=== PATIENT | female | born 1950 | race Caucasian/White ===

== ENCOUNTER 2019-09-25 22:07 | Emergency (ER) | payer OTHER ==
[2019-09-25] MEDS ORDERED: Acetaminophen/HYDROcodone 325-5 MG Tab PO ONE ×2 (22:19→22:27)
[2019-09-25] MEDS ORDERED: Clindamycin HCl 150 MG Cap PO ONE (22:27)
--- NOTE | 2019-09-25 22:28 | EDM.PDOC ---
ED HPI GENERAL MEDICAL PROBLEM - General Chief Complaint: ENT Problem Stated Complaint: EAR AND TOOTH PAIN Time Seen by Provider: 09/25/19 22:18 Source of Information: Reports: Patient, RN Notes Reviewed History Limitations: Reports: No Limitations - History of Present Illness INITIAL COMMENTS - FREE TEXT/NARRATIVE: Patient is a 69-year-old female who presents to the ED for the evaluation of her left sided dental pain. Patient notes that she had 2 root canals performed by film crew member on Sunday, and was sent home with Lortabs, but states she did not fill them as she was using Tylenol that seem to help provide pain relief. Patient notes that tonight however she developed some pain into her left jaw, that radiates into her left ear and left neck, she denies any difficulty swallowing or any fever/chills, cough/shortness of breath, or any chest pain, nausea/vomiting/diarrhea. Patient did appreciate a mild amount of swelling as well. Left Tooth/Teeth Pain Score (Numeric/FACES): 9 - Related Data Allergies Allergy/AdvReac Type Severity Reaction Status Date / Time latex Allergy Rash Verified 09/25/19 22:15 nickel Allergy Rash Verified 09/25/19 22:15 Penicillins Allergy Rash Verified 09/25/19 22:15 Home Meds: Home Meds Clindamycin HCl 300 mg PO TID #21 capsule 09/25/19 [Rx] Past Medical History HEENT History: Reports: Other (See Below) Other HEENT History: wears glasses Cardiovascular History: Reports: High Cholesterol, Hypertension Gastrointestinal History: Reports: GERD Psychiatric History: Reports: Depression Endocrine/Metabolic History: Reports: Hypothyroidism - Past Surgical History HEENT Surgical History: Reports: Adenoidectomy, Tonsillectomy Female Surgical History: Reports: Tubal Ligation Social & Family History - Family History Family Medical History: Noncontributory - Tobacco Use Smoking Status *Q: Never Smoker - Caffeine Use Caffeine Use: Reports: Coffee - Recreational Drug Use Recreational Drug Use: No ED ROS ENT - Review of Systems Review Of Systems: Comprehensive ROS is negative, except as noted in HPI. ED EXAM, ENT - Physical Exam Exam: See Below Exam Limited By: No Limitations General Appearance: Alert, WD/WN, No Apparent Distress Mouth/Throat: Normal Inspection, Normal Gums, Normal Lips, Normal Oropharynx, Dental Pain (to left jaw). No: Trismus, Uvular Deviation Head: Atraumatic, Normocephalic Neck: Normal Inspection Respiratory/Chest: No Respiratory Distress, Lungs Clear, Normal Breath Sounds, No Accessory Muscle Use, Chest Non-Tender Cardiovascular: Normal Peripheral Pulses, Regular Rate, Rhythm, No Murmur Extremities: Normal Inspection, Normal Capillary Refill Neurological: Alert, Oriented, Normal Cognition, No Motor/Sensory Deficits Psychiatric: Normal Affect, Normal Mood Skin: Warm, Dry, Intact, Normal Color, No Rash Course - Vital Signs Last Recorded V/S: Last Vital Signs Temp 98.8 F 09/25/19 22:12 Pulse 96 09/25/19 22:12 Resp 18 09/25/19 22:12 BP 105/83 09/25/19 22:12 Pulse Ox 100 09/25/19 22:12 - Orders/Labs/Meds Meds: Medications Discontinued Medications Generic Name Dose Route Start Last Admin Trade Name Dim[place] PRN Reason Stop Dose Admin Hydrocodone Bitart/Acetaminophen 2 tab 09/25/19 22:19 [place] 325-5 Mg PO 09/25/19 22:20 ONETIME ONE Hydrocodone Bitart/Acetaminophen 2 tab 09/25/19 22:27 [place] 325-5 Mg PO 09/25/19 22:28 ONETIME ONE Clindamycin HCl 600 mg 09/25/19 22:27 [place] PO 09/25/19 22:28 ONETIME ONE - Re-Assessments/Exams Free Text/Narrative Re-Assessment/Exam: 09/25/19 22:34 Patient presents to the ED for her left-sided dental pain. I have ordered 2 tablets of [place] 5/325mg, and 60o mg oral clindamycin, patient was at home with a prescription for clindamycin, she will fill her Lortab prescription tomorrow. Departure - Departure Time of Disposition: 22:35 Disposition: Home, Self-Care 01 Condition: Good Clinical Impression: Pain, dental - Discharge Information *PRESCRIPTION DRUG MONITORING PROGRAM REVIEWED*: No *COPY OF PRESCRIPTION DRUG MONITORING REPORT IN PATIENT MUNIRA: No Prescriptions: Clindamycin HCl 300 mg PO TID #21 capsule Referrals: Letitia Avery MD [Primary Care Provider] - Forms: ED Department Discharge Additional Instructions: You have been evaluated in the ED for your dental pain. You have been provided with a script for Clindamycin. This was electronically sent to the Clinic pharmacy located in the [facility]. Please take this medication as directed. (1 tab 3 times daily for 7 days or until gone). This antibiotic can cause diarrhea, recommend that you start a probiotic while taking this medication. Please fill the Lortab prescription that your dental provider did give you upon discharge after the root canals for further pain relief. You may use hot pack/ ice packs to the affected area as tolerated in 15-20 minute intervals. Please return to the ED if your symptoms change or worsen. Sepsis Event Note (ED) - Evaluation Sepsis Screening Result: No Definite Risk - Focused Exam Vital Signs: Vital Signs Temp Pulse Resp BP Pulse Ox 09/25/19 22:12 98.8 F 96 18 105/83 100
== END 2019-09-25 22:48 | disposition home or self-care (01) ==
LOC: JD.ED 22:07
DX: K08.89 Other specified disorders of teeth and supporting structures (principal); R68.84 Jaw pain; I10 Essential (primary) hypertension; Z91.040 Latex allergy status; Z88.0 Allergy status to penicillin; Z91.048 Other nonmedicinal substance allergy status
CPT/HCPCS: 99282; A9270

== ENCOUNTER 2019-09-28 15:42 | Emergency (ER) | payer MEDICARE, OTHER ==
[2019-09-28] MEDS ORDERED: HYDROmorphone 0.5 MG/0.5 ML Syringe IVPUSH ONE (16:16)
[2019-09-28] MEDS ORDERED: cefTRIAXone 1 GM in Sodium Chloride 0.9% 100 ML IV ONE (16:16)
[2019-09-28] MEDS ORDERED: Ondansetron 4 MG/2 ML SDV IVPUSH ONE (16:16)
[2019-09-28] MEDS ORDERED: Sodium Chloride 0.9% 10 ML Syringe FLUSH PRN (16:16)
[2019-09-28] MEDS ORDERED: Ketorolac 30 MG/ML SDV IVPUSH ONE (16:16)
[2019-09-28] MEDS ORDERED: Sodium Chloride 0.9% 1,000 ML IV SCH (16:30)
--- NOTE | 2019-09-28 18:01 | EDM.PDOC ---
ED HPI GENERAL MEDICAL PROBLEM - General Chief Complaint: ENT Problem Stated Complaint: TOOTH/NECK/EAR PAIN Time Seen by Provider: 09/28/19 15:52 Source of Information: Reports: Patient History Limitations: Reports: No Limitations - History of Present Illness INITIAL COMMENTS - FREE TEXT/NARRATIVE: Patient is a 69-year-old female who presents to the emergency department with co mplaints of pain and swelling to her left lower jaw after having root canal was completed on Sunday of last week. She was seen in this emergency department 3 days ago for similar complaints. She was prescribed [place] and clindamycin which she has been taking since that time. She states that the pain has not improved and that she feels like the swelling may have gotten worse. She denies any naus ea, vomiting, fever, or chills. - Related Data Allergies Allergy/AdvReac Type Severity Reaction Status Date / Time latex Allergy Rash Verified 09/25/19 22:15 nickel Allergy Rash Verified 09/25/19 22:15 Penicillins Allergy Rash Verified 09/25/19 22:15 Home Meds: Home Meds Calcium Carb/Vitamin D3/Vit K1 [Calcium + D Soft Chewable Tab] 2 tab PO DAILY 09/25/19 [History] Citalopram [Citalopram HBr] 20 mg PO DAILY 09/25/19 [History] Clindamycin HCl 300 mg PO TID #21 capsule 09/25/19 [Rx] Folic Acid 2 mg PO DAILY 09/25/19 [History] Latanoprost/Pf [Latanoprost 0.005% Eye Drop] 1 drop EYELF BEDTIME 09/25/19 [History] Levothyroxine [Synthroid] 100 mcg PO DAILY 09/25/19 [History] Methotrexate 7 tab PO WEEKLY 09/25/19 [History] Multivitamin [Multivitamins] 1 cap PO DAILY 09/25/19 [History] Omeprazole 20 mg PO DAILY 09/25/19 [History] Sennosides [Senna] 8.6 mg PO DAILY PRN 09/25/19 [History] Zoledronic AC/Mannitol/0.9NACL [Zoledronic Acid 4 mg/100 ml] 5 mg IV ASDIRECTED 09/25/19 [History] amLODIPine [Norvasc] 5 mg PO DAILY 09/25/19 [History] atorvaSTATin [Lipitor] 10 mg PO DAILY 09/25/19 [History] Past Medical History HEENT History: Reports: Other (See Below) Other HEENT History: wears glasses Cardiovascular History: Reports: High Cholesterol, Hypertension Gastrointestinal History: Reports: GERD Psychiatric History: Reports: Depression Endocrine/Metabolic History: Reports: Hypothyroidism - Past Surgical History HEENT Surgical History: Reports: Adenoidectomy, Tonsillectomy Female Surgical History: Reports: Tubal Ligation Social & Family History - Family History Family Medical History: Noncontributory - Tobacco Use Smoking Status *Q: Never Smoker - Caffeine Use Caffeine Use: Reports: Coffee ED ROS ENT - Review of Systems Review Of Systems: Comprehensive ROS is negative, except as noted in HPI. ED EXAM, ENT - Physical Exam Exam: See Below Exam Limited By: No Limitations General Appearance: Alert, WD/WN, No Apparent Distress Mouth/Throat: Normal Inspection, Normal Gums, Normal Lips, Normal Oropharynx, Normal Teeth, Other (Visible swelling to the exterior left lower jaw. No redness or erythema to the gumline.) Respiratory/Chest: No Respiratory Distress, Lungs Clear, Normal Breath Sounds, No Accessory Muscle Use, Chest Non-Tender Cardiovascular: Normal Peripheral Pulses, Regular Rate, Rhythm, No Edema, No Gallop, No JVD, No Murmur, No Rub Neurological: Alert, Oriented, CN II-XII Intact, Normal Cognition, Normal Gait, Normal Reflexes, No Motor/Sensory Deficits Psychiatric: Normal Affect, Normal Mood Skin: Warm, Dry, Intact, Normal Color, No Rash Course - Vital Signs Last Recorded V/S: Last Vital Signs Temp 98.7 F 09/28/19 15:56 Pulse 99 09/28/19 15:56 Resp 16 09/28/19 15:56 BP 165/93 H 09/28/19 15:56 Pulse Ox 97 09/28/19 15:56 - Orders/Labs/Meds Orders: Active Orders 24 hr Category Date Time Status Peripheral IV Care [RC] . DIRECTED Care 09/28/19 16:16 Active Peripheral IV Insertion Adult [OM.PC] Stat Oth 09/28/19 16:16 Ordered Labs: Laboratory Tests 09/28/19 09/28/19 Range/Units 16:41 16:41 WBC 7.46 (3.98-10.04) K/mm3 RBC 3.54 L (3.98-5.22) M/mm3 Hgb 11.2 (11.2-15.7) gm/dl Hct 34.6 (34.1-44.9) % MCV 97.7 H (79.4-94.8) fl MCH 31.6 (25.6-32.2) pg MCHC 32.4 (32.2-35.5) g/dl RDW Std Deviation 56.7 H (36.4-46.3) fL Plt Count 202 (182-369) K/mm3 MPV 9.8 (9.4-12.3) fl Neut % (Auto) 77.3 H (34.0-71.1) % Lymph % (Auto) 5.6 L (19.3-51.7) % Bartholomew % (Auto) 15.8 H (4.7-12.5) % Eos % (Auto) 1.1 (0.7-5.8) Baso % (Auto) 0.1 (0.1-1.2) % Neut # (Auto) 5.76 (1.56-6.13) K/mm3 Lymph # (Auto) 0.42 L (1.18-3.74) K/mm3 Bartholomew # (Auto) 1.18 H (0.24-0.36) K/mm3 Eos # (Auto) 0.08 (0.04-0.36) K/mm3 Baso # (Auto) 0.01 (0.01-0.08) K/mm3 Manual Slide Review Abnormal smear Sodium 136 (136-145) mEq/L Potassium 3.8 (3.5-5.1) mEq/L Chloride 101 (98-107) mEq/L Carbon Dioxide 28 (21-32) mEq/L Anion Gap 10.8 (5-15) BUN 9 (7-18) mg/dL Creatinine 0.5 L (0.55-1.02) mg/dL Est Cr Clr Drug Dosing 92.86 mL/min Estimated GFR (MDRD) > 60 (>60) mL/min BUN/Creatinine Ratio 18.0 (14-18) Glucose 98 (83-115) mg/dL Calcium 9.5 (8.5-10.1) mg/dL Total Bilirubin 0.5 (0.2-1.0) mg/dL AST 34 (15-37) U/L ALT 35 (14-59) U/L Alkaline Phosphatase 85 (46-116) U/L C-Reactive Protein 5.0 H* (<1.0) mg/dL Total Protein 7.1 (6.4-8.2) g/dl Albumin 3.5 (3.4-5.0) g/dl Globulin 3.6 gm/dL Albumin/Globulin Ratio 1.0 (1-2) Meds: Medications Discontinued Medications Generic Name Dose Route Start Last Admin Trade Name Freq PRN Reason Stop Dose Admin Hydromorphone HCl 0.5 mg 09/28/19 16:16 09/28/19 16:39 Dilaudid IVPUSH 09/28/19 16:17 0.5 mg ONETIME ONE Administration Sodium Chloride 1,000 mls @ 150 mls/hr 09/28/19 16:30 09/28/19 16:38 Normal Saline IV 150 mls/hr ASDIRECTED [place] Administration Ceftriaxone Sodium 1 gm/ 100 mls @ 200 mls/hr 09/28/19 16:16 09/28/19 16:38 Sodium Chloride IV 09/28/19 16:45 200 mls/hr ONETIME ONE Administration Ketorolac Tromethamine 30 mg 09/28/19 16:16 09/28/19 16:38 Toradol IVPUSH 09/28/19 16:17 30 mg ONETIME ONE Administration Ondansetron HCl 4 mg 09/28/19 16:16 09/28/19 16:38 Zofran IVPUSH 09/28/19 16:17 4 mg ONETIME ONE Administration Sodium Chloride 10 ml 09/28/19 16:16 09/28/19 16:39 Saline Flush FLUSH 10 ml ASDIRECTED PRN Administration Keep Vein Open - Re-Assessments/Exams Free Text/Narrative Re-Assessment/Exam: Patient is a 69-year-old female who presents to the ER with ongoing pain and swelling to her left lower jaw after root canals were completed last Sunday. She states she forgot to call her dentist on Sunday. She was prescribed clindamycin called on to treat the symptoms. Been taking these since that time but does not feel that the symptoms are getting better. Discussed the case with Dr. Oconnell. He recommended that we give a dose of IV Rocephin now and then start doxycycline in addition to the clindamycin. I have also ordered a CBC, CMP, CRP. We will also give her a slow infusion of NS at 150 as well as Toradol and Dilaudid for pain. 09/28/19 1750 Hematology was grossly unremarkable with the exception of her CRP being slightly elevated at 5.0. She is feeling better after the medications given. We will discharge her home with a prescription for Percocet for the pain as well as doxycycline to be taken in addition to the clindamycin. I did emphasize the importance of her contacting her dentist tomorrow to arrange for follow-up. She is in agreement with this plan. Discharge instructions as documented. Departure - Departure Time of Disposition: 17:58 Disposition: Home, Self-Care 01 Condition: Good Clinical Impression: Pain, dental - Discharge Information *PRESCRIPTION DRUG MONITORING PROGRAM REVIEWED*: No *COPY OF PRESCRIPTION DRUG MONITORING REPORT IN PATIENT MUNIRA: No Instructions: Acute Pain, Adult Referrals: Letitia Avery MD [Primary Care Provider] - Forms: ED Department Discharge Additional Instructions: You were seen in the emergency department today for ongoing pain and swelling to your left lower jaw after root canal surgery. Blood work was done in the ER and found to be essentially normal with the exception of your inflammatory markers being slightly elevated. While in the ER you received IV Rocephin which is an antibiotic, Toradol and Dilaudid for pain, and Zofran for nausea. This did improve your pain. Recommend that you continue the clindamycin that was previously prescribed. You have also been provided a prescription for doxycycline which was also an antibiotic. Start taking this medication in addition to the clindamycin. I would also recommend that you start taking a daily probiotic to protect the good bacterial collin of your gut. Recommend that you continue to take ibuprofen routinely as this will help with the pain and in flammation. You have also been provided a prescription for Percocets for pain not relieved by ibuprofen. Take 1 tab every 4 hours as needed for pain. Do not drive or work for at least 12 hours after taking this medication as it can be sedating. It is very important that you contact your dentist first thing tomorrow morning to let them know about the situation. If you should experience any worsening symptoms, please not hesitate to return to the emergency department. Sepsis Event Note (ED) - Evaluation Sepsis Screening Result: No Definite Risk - Focused Exam Vital Signs: Vital Signs Temp Pulse Resp BP Pulse Ox 09/28/19 15:56 98.7 F 99 16 165/93 H 97 - My Orders Last 24 Hours: My Active Orders 09/28/19 16:16 Peripheral IV Care [RC] . DIRECTED Peripheral IV Insertion Adult [OM.PC] Stat - Assessment/Plan Last 24 Hours: My Active Orders 09/28/19 16:16 Peripheral IV Care [RC] . DIRECTED Peripheral IV Insertion Adult [OM.PC] Stat
== END 2019-09-28 18:10 | disposition home or self-care (01) ==
LOC: JD.ED 15:42
DX: K08.89 Other specified disorders of teeth and supporting structures (principal); E78.00 Pure hypercholesterolemia, unspecified; I10 Essential (primary) hypertension; K21.9 Gastro-esophageal reflux disease without esophagitis; E03.9 Hypothyroidism, unspecified; F32.9 Major depressive disorder, single episode, unspecified; Z91.040 Latex allergy status; Z91.09 Other allergy status, other than to drugs and biological substances; Z88.0 Allergy status to penicillin; Z79.899 Other long term (current) drug therapy
CPT/HCPCS: 36415; 80053; 85025; 86140; 96365; 96375; 99283; J0696; J1170; J1885; J2405; J7030; J7050

== ENCOUNTER 2019-10-02 10:38 | Emergency (ER) | payer MEDICARE, OTHER ==
--- NOTE | 2019-10-02 11:04 | EDM.PDOC ---
ED HPI GENERAL MEDICAL PROBLEM - General Chief Complaint: ENT Problem Stated Complaint: SWOLLEN (L) CHEEK Time Seen by Provider: 10/02/19 11:04 - History of Present Illness INITIAL COMMENTS - FREE TEXT/NARRATIVE: 69-year-old female seen room with continued left jaw swelling. About a week and a half ago the patient had a dental abscess drained. She has been seen here several times and started on clindamycin doxycycline and has already received 1 IV dose of Rocephin and the swelling is not getting any better she saw her hand candle dipper again earlier this week who drained it but she is not improving at all and seems to have continued drainage from the site. She continues to have swelling at the site and along the left lower jaw and she is not aware of any fevers or chills. Left Face/Facial Pain Score (Numeric/FACES): 5 - Related Data Allergies Allergy/AdvReac Type Severity Reaction Status Date / Time latex Allergy Rash Verified 10/02/19 10:51 nickel Allergy Rash Verified 10/02/19 10:51 Penicillins Allergy Rash Verified 10/02/19 10:51 Home Meds: Home Meds Calcium Carb/Vitamin D3/Vit K1 [Calcium + D Soft Chewable Tab] 2 tab PO DAILY 09/25/19 [History] Citalopram [Citalopram HBr] 20 mg PO DAILY 09/25/19 [History] Clindamycin HCl 300 mg PO TID #21 capsule 09/25/19 [Rx] Folic Acid 3 mg PO DAILY 09/25/19 [History] Latanoprost/Pf [Latanoprost 0.005% Eye Drop] 1 drop EYELF BEDTIME 09/25/19 [History] Levothyroxine [Synthroid] 100 mcg PO DAILY 09/25/19 [History] Methotrexate 7 tab PO WEEKLY 09/25/19 [History] Multivitamin [Multivitamins] 1 cap PO DAILY 09/25/19 [History] Omeprazole 20 mg PO DAILY 09/25/19 [History] Sennosides [Senna] 8.6 mg PO DAILY PRN 09/25/19 [History] Zoledronic AC/Mannitol/0.9NACL [Zoledronic Acid 4 mg/100 ml] 5 mg IV ASDIRECTED 09/25/19 [History] amLODIPine [Norvasc] 5 mg PO DAILY 09/25/19 [History] atorvaSTATin [Lipitor] 10 mg PO DAILY 09/25/19 [History] Doxycycline [Vibramycin] 100 mg PO BID 10/02/19 [History] Past Medical History HEENT History: Reports: Other (See Below) Other HEENT History: wears glasses Cardiovascular History: Reports: High Cholesterol, Hypertension Gastrointestinal History: Reports: GERD Psychiatric History: Reports: Depression Endocrine/Metabolic History: Reports: Hypothyroidism - Past Surgical History HEENT Surgical History: Reports: Adenoidectomy, Tonsillectomy Female Surgical History: Reports: Tubal Ligation Social & Family History - Family History Family Medical History: Noncontributory - Tobacco Use Smoking Status *Q: Never Smoker - Caffeine Use Caffeine Use: Reports: Coffee - Recreational Drug Use Recreational Drug Use: No ED ROS ENT - Review of Systems Review Of Systems: See Below Constitutional: Reports: No Symptoms HEENT: Reports: Dental Pain, Other (Left jaw swelling) Respiratory: Reports: No Symptoms Cardiovascular: Reports: No Symptoms GI/Abdominal: Reports: No Symptoms ED EXAM, ENT - Physical Exam Exam: See Below Exam Limited By: No Limitations General Appearance: Alert, No Apparent Distress Eye Exam: Bilateral Eye: Normal Inspection Ears: Normal External Exam, Normal Canal, Hearing Grossly Normal, Normal TMs Nose: Normal Inspection, Normal Mucousa, No Blood Mouth/Throat: Normal Lips, Normal Oropharynx, Other (No tenderness is noted along the parotid gland. Her tooth in question left lower second from the rear has some obvious drainage coming up between this tooth and the one in front of it. She is got some tenderness and swelling along the lateral aspect of the left jaw.) Head: Atraumatic, Other (Jaw swelling as described above) Neck: Normal Inspection, Supple, Non-Tender, Full Range of Motion Respiratory/Chest: No Respiratory Distress, Lungs Clear, Normal Breath Sounds Cardiovascular: Regular Rate, Rhythm, No Edema, No Murmur Course - Vital Signs Last Recorded V/S: Last Vital Signs Temp 36.2 C 10/02/19 10:45 Pulse 88 10/02/19 10:45 Resp 13 10/02/19 10:45 BP 130/65 10/02/19 10:45 Pulse Ox 99 10/02/19 10:45 - Orders/Labs/Meds Meds: Medications Discontinued Medications Generic Name Dose Route Start Last Admin Trade Name Freq PRN Reason Stop Dose Admin Ceftriaxone Sodium Confirm 10/02/19 12:13 Rocephin Administered 10/02/19 12:14 Dose 2 gm IV .STK-MED ONE Sodium Chloride Confirm 10/02/19 12:15 Normal Saline Administered 10/02/19 12:16 Dose 100 mls @ as directed .ROUTE .STK-MED ONE - Re-Assessments/Exams Free Text/Narrative Re-Assessment/Exam: 10/02/19 12:40 This was discussed with Dr. Vicente, her hand candle dipper. We will give her 2 g of Rocephin and the patient will follow up with Dr. Vicente shortly before 5 central time today. Departure - Departure Time of Disposition: 12:41 Disposition: Home, Self-Care 01 Clinical Impression: Pain, dental, Dental abscess - Discharge Information Referrals: Letitia Avery MD [Primary Care Provider] - Forms: ED Department Discharge Additional Instructions: As we discussed follow-up with Dr. Vicente this afternoon shortly before 5:00 central time. Return to the emergency room with any questions problems or worsening symptoms. Sepsis Event Note (ED) - Evaluation Sepsis Screening Result: No Definite Risk - Focused Exam Vital Signs: Vital Signs Temp Pulse Resp BP Pulse Ox 10/02/19 10:45 36.2 C 88 13 130/65 99
[2019-10-02] MEDS ORDERED: cefTRIAXone 2 GM AdvVial IV ONE (12:13)
[2019-10-02] MEDS ORDERED: Sodium Chloride 0.9% 100 ML ONE (12:15)
[2019-10-02] MEDS ORDERED: cefTRIAXone 2 GM in Sodium Chloride 0.9% 100 ML IV SCH (12:45)
== END 2019-10-02 12:56 | disposition home or self-care (01) ==
LOC: JD.ED 10:38
DX: K04.7 Periapical abscess without sinus (principal); I10 Essential (primary) hypertension; E78.00 Pure hypercholesterolemia, unspecified; K21.9 Gastro-esophageal reflux disease without esophagitis; F32.9 Major depressive disorder, single episode, unspecified; E03.9 Hypothyroidism, unspecified; Z91.040 Latex allergy status; Z91.048 Other nonmedicinal substance allergy status; Z88.0 Allergy status to penicillin; Z79.899 Other long term (current) drug therapy
CPT/HCPCS: 96365; 99283; J0696; J7050

== ENCOUNTER 2021-03-18 14:37 | Emergency (ER) | payer MEDICARE, OTHER ==
--- NOTE | 2021-03-18 14:47 | EDM.PDOC ---
ED HPI GENERAL MEDICAL PROBLEM - General Chief Complaint: Lower Extremity Injury/Pain Stated Complaint: [facility] Time Seen by Provider: 03/18/21 14:41 - History of Present Illness INITIAL COMMENTS - FREE TEXT/NARRATIVE: 70-year-old female brought in by [facility] after falling and injuring her left leg. The patient has inclusion body myositis and has significant weakness resulting from this the patient went down 1 step and her right knee gave out. She injured her left lower leg. It was splinted in a significantly flexed position of the knee but she had an obvious deformity below this. She has significant disc omfort she was not able to receive pain medication in route here. Left Knee Pain Score (Numeric/FACES): 5 - Related Data Allergies Allergy/AdvReac Type Severity Reaction Status Date / Time latex Allergy Rash Verified 03/18/21 14:43 nickel Allergy Rash Verified 03/18/21 14:43 Penicillins Allergy Rash Verified 03/18/21 14:43 Home Meds: Home Meds Calcium Carb/Vitamin D3/Vit K1 [Calcium + D Soft Chewable Tab] 2 tab PO DAILY 09/25/19 [History] Citalopram [Citalopram HBr] 20 mg PO DAILY 09/25/19 [History] Folic Acid 3 mg PO DAILY 09/25/19 [History] Latanoprost/Pf [Latanoprost 0.005% Eye Drop] 1 drop EYELF BEDTIME 09/25/19 [History] Levothyroxine [Synthroid] 100 mcg PO DAILY 09/25/19 [History] Methotrexate 5 tab PO WEEKLY 09/25/19 [History] Multivitamin [Multivitamins] 1 cap PO DAILY 09/25/19 [History] amLODIPine [Norvasc] 5 mg PO DAILY 09/25/19 [History] atorvaSTATin [Lipitor] 10 mg PO DAILY 09/25/19 [History] Denosumab [Prolia] 60 mg IM ASDIRECTED 03/18/21 [History] Pantoprazole Sodium [Protonix] 0 mg PO DAILY 03/18/21 [History] polyethylene glycoL 3350 [MiraLAX] 17 gm PO DAILY PRN 03/18/21 [History] Past Medical History HEENT History: Reports: Other (See Below) Other HEENT History: wears glasses Cardiovascular History: Reports: High Cholesterol, Hypertension Gastrointestinal History: Reports: GERD Psychiatric History: Reports: Depression Endocrine/Metabolic History: Reports: Hypothyroidism - Past Surgical History HEENT Surgical History: Reports: Adenoidectomy, Tonsillectomy Female Surgical History: Reports: Tubal Ligation Social & Family History - Family History Family Medical History: No Pertinent Family History - Caffeine Use Caffeine Use: Reports: Coffee Review of Systems - Review of Systems Review Of Systems: See Below Constitutional: Reports: Weakness (This is chronic weakness). Denies: Chills, Fever Eyes: Reports: No Symptoms Ears: Reports: No Symptoms Nose: Reports: No Symptoms Mouth/Throat: Reports: No Symptoms Respiratory: Reports: No Symptoms Cardiovascular: Reports: No Symptoms GI/Abdominal: Reports: No Symptoms Genitourinary: Reports: No Symptoms Musculoskeletal: Reports: Leg Pain, Other (Generalized muscle weakness secondary to the myositis) Neurological: Reports: No Symptoms ED EXAM, GENERAL - Physical Exam Exam: See Below Exam Limited By: No Limitations General Appearance: Alert, No Apparent Distress Head: Atraumatic, Normocephalic Neck: Normal Inspection, Supple, Non-Tender, Full Range of Motion Respiratory/Chest: No Respiratory Distress, Lungs Clear, Normal Breath Sounds Cardiovascular: Regular Rate, Rhythm, No Edema, No Murmur GI/Abdominal: Normal Bowel Sounds, Soft, Non-Tender Extremities: Other (We disassembled the makeshift splint and was able to gently extend her leg. Neurovascular status of the foot was normal.) Skin Exam: Warm, Dry, Intact Course - Vital Signs Last Recorded V/S: Last Vital Signs Temp 36.6 C 03/18/21 14:37 Pulse 93 03/18/21 14:37 Resp 18 03/18/21 14:37 BP 143/83 H 03/18/21 14:37 Pulse Ox 100 03/18/21 14:37 - Orders/Labs/Meds Orders: Active Orders 24 hr Category Date Time Status Durable Medical Equipment for Discharge [DME for Oth 03/18/21 17:05 Ordered Discharge] [COMM] Stat Durable Medical Equipment for Discharge [DME for Oth 03/18/21 17:08 Ordered Discharge] [COMM] Stat Labs: Laboratory Tests 03/18/21 Range/Units 16:24 SARS-CoV-2 RNA (DURGA) Negative (NEGATIVE) Meds: Medications Discontinued Medications Generic Name Dose Route Start Last Admin Trade Name Freq PRN Reason Stop Dose Admin Fentanyl 50 mcg 03/18/21 14:52 03/18/21 14:55 Fentanyl 100 Mcg/2 Ml Sdv IVPUSH 03/18/21 14:53 50 mcg ONETIME ONE Administration Fentanyl 50 mcg 03/18/21 16:43 03/18/21 16:50 Fentanyl 100 Mcg/2 Ml Sdv IVPUSH 03/18/21 16:44 50 mcg ONETIME ONE Administration Hydromorphone HCl 0.5 mg 03/18/21 19:53 Hydromorphone 0.5 Mg/0.5 Ml Syringe IVPUSH 03/18/21 19:54 ONETIME ONE - Re-Assessments/Exams Free Text/Narrative Re-Assessment/Exam: 03/18/21 18:25 Dr. Cutler, our orthopedic surgeon who is leaving [facility] for the weekend in the next 2 weeks was able to review the x-rays and thought it had pretty good alignment recommended the knee immobilizer. And then refer to [facility] in [place]. The case was discussed with Dr. Soriano. We then learned that the patient will not be able to ambulate with crutches. [facility] in [place] is not able to accommodate the patient and we are on diversion. The case was then discussed with 1 call at [facility] who believes they possibly can however they will wait for the images to arrive to determine where she needs to go. We have a Covid pending at this time. 03/18/21 19:56 Ultimately [facility] in [place] was able to accept the patient and we have arranged I discussed the situation with Dr. Castro who is kind enough to accept the patient. I Did notify [facility] of the change of plans Departure - Departure Time of Disposition: 19:57 Disposition: DC/Tfer to [facility] 02 Clinical Impression: Myositis, Closed fracture of left tibia and fibula - Discharge Information Referrals: Letitia Avery MD [Primary Care Provider] - Forms: ED Department Discharge Sepsis Event Note (ED) - Focused Exam Vital Signs: Vital Signs Temp Pulse Resp BP Pulse Ox 03/18/21 14:37 36.6 C 93 18 143/83 H 100 - My Orders Last 24 Hours: My Active Orders 03/18/21 17:05 Durable Medical Equipment for Discharge [DME for Discharge] [COMM] Stat 03/18/21 17:08 Durable Medical Equipment for Discharge [DME for Discharge] [COMM] Stat - Assessment/Plan Last 24 Hours: My Active Orders 03/18/21 17:05 Durable Medical Equipment for Discharge [DME for Discharge] [COMM] Stat 03/18/21 17:08 Durable Medical Equipment for Discharge [DME for Discharge] [COMM] Stat
[2021-03-18] MEDS ORDERED: fentaNYL 100 MCG/2 ML SDV IVPUSH ONE ×2 (14:52→16:43)
--- NOTE | 2021-03-18 15:45 | CR ---
Pelvis: AP view of the pelvis was obtained. Comparison: No prior pelvis study is available. Patient is rotated for this exam. Within this limitation, no discrete fracture is appreciated. Osteopenia is noted. No additional abnormality is definitely appreciated. Impression: 1. Nothing acute is seen on slightly limited AP pelvis study. Diagnostic code #2
--- NOTE | 2021-03-18 15:45 | CR ---
Left femur: AP and lateral views of the left femur were obtained. Distal portions of the bone were included on knee exam performed on the same day. Comparison: No prior femur study is available. No fracture or other bony abnormality is appreciated. Impression: 1. Nothing acute is seen on 2-view left femur study. Diagnostic code #1
--- NOTE | 2021-03-18 15:46 | CR ---
Left tibia and fibula: AP and lateral views of the left tibia and fibula were obtained. Comparison: No prior tibia or fibula study is available. Fracture is seen within the proximal tibia involving the proximal diaphysis close to the metaphysis. There is widening of the fracture line by approximately 6 mm. Slight deformity of the fibular head is seen which is felt compatible with additional fracture. Chondrocalcinosis is noted within the menisci of the medial and lateral knee. No additional tibia or fibula abnormality is seen. Impression: 1. Fracture within the proximal tibia occurring at the diaphysis close to the metaphysis. Widening of the fracture line by about 6 mm is noted. 2. Fibular head fracture is also felt to be present. 3. Chondrocalcinosis within the knee. Diagnostic code #3
[2021-03-18] MEDS ORDERED: HYDROmorphone 0.5 MG/0.5 ML Syringe IVPUSH ONE (19:53)
[2021-03-18] MEDS ORDERED: Ondansetron 4 MG/2 ML SDV ONE (21:09)
[2021-03-18] MEDS ORDERED: Ondansetron 4 MG/2 ML SDV IVPUSH ONE (21:10)
== END 2021-03-18 21:13 ==
LOC: JD.ED 14:37
DX: S82.102A Unspecified fracture of upper end of left tibia, initial encounter for closed fracture (principal); S82.832A Other fracture of upper and lower end of left fibula, initial encounter for closed fracture; E78.00 Pure hypercholesterolemia, unspecified; I10 Essential (primary) hypertension; E03.9 Hypothyroidism, unspecified; Z91.040 Latex allergy status; Z88.0 Allergy status to penicillin; Z91.048 Other nonmedicinal substance allergy status; Z79.899 Other long term (current) drug therapy; Z20.822 Contact with and (suspected) exposure to COVID-19; W18.39XA Other fall on same level, initial encounter
CPT/HCPCS: 72170; 72170-26; 73552-26-LT; 73552-LT; 73590-26-LT; 73590-LT; 96374; 96375; 96376; 99284-25; 99285; J1170; J2405; J3010; U0002

== ENCOUNTER 2021-04-07 18:39 | Emergency (ER) | payer MEDICARE, OTHER ==
[2021-04-07] MEDS ORDERED: Sodium Chloride 0.9% 1,000 ML IV STA ×2 (19:03→20:38)
[2021-04-07] MEDS ORDERED: Ondansetron 4 MG/2 ML SDV IVPUSH ONE (19:03)
--- NOTE | 2021-04-07 19:14 | EDM.PDOC ---
ED HPI GENERAL MEDICAL PROBLEM - General Chief Complaint: Lower Extremity Injury/Pain Stated Complaint: [facility] Time Seen by Provider: 04/07/21 18:49 Source of Information: Reports: Patient, Family, Old Records, RN Notes Reviewed History Limitations: Reports: No Limitations - History of Present Illness INITIAL COMMENTS - FREE TEXT/NARRATIVE: Patient is is a 70-year-old female presenting to the emergency department for worsening pain to her left tibia. She has a known tibia fracture and is scheduled to have surgery in the near future in [place]. She has been having progressively worsening pain over the last few days. She was evaluated by her primary care provider yesterday. She was diagnosed with catheter associated UTI. She was started on cephalexin, however she has not received her first dose of this yet. They also started her on subcutaneous Dilaudid which she received a dose this morning. She receives 1 Percocet every 8 hours routinely, however this was just started yesterday as well. Prior to calling the ambulance, long term facility gave her a dose of Tylenol and cyclobenzaprine per patient report. She received fentanyl in route from ambulance and states that her pain did improve. She now feels nauseous however. She is also complaining of low back pain that has been occurring off and on since she had her fall in March. She has had no new falls. She has been wearing her knee immobilizer faithfully. Patient reports that she was evaluated by her orthopedist a few days ago they completed CT and x-ray. They decided to proceed with surgery as there was a "shift "in the fracture. Left Leg Pain Score (Numeric/FACES): 5 - Related Data Allergies Allergy/AdvReac Type Severity Reaction Status Date / Time latex Allergy Rash Verified 04/07/21 18:46 nickel Allergy Rash Verified 04/07/21 18:46 Penicillins Allergy Rash Verified 04/07/21 18:46 Home Meds: Home Meds Calcium Carb/Vitamin D3/Vit K1 [Calcium + D Soft Chewable Tab] 2 tab PO DAILY 09/25/19 [History] Citalopram [Citalopram HBr] 20 mg PO DAILY 09/25/19 [History] Folic Acid 3 mg PO DAILY 09/25/19 [History] Latanoprost/Pf [Latanoprost 0.005% Eye Drop] 1 drop EYELF BEDTIME 09/25/19 [History] Levothyroxine [Synthroid] 100 mcg PO DAILY 09/25/19 [History] Methotrexate 5 tab PO WEEKLY 09/25/19 [History] Multivitamin [Multivitamins] 1 cap PO DAILY 09/25/19 [History] amLODIPine [Norvasc] 5 mg PO DAILY 09/25/19 [History] atorvaSTATin [Lipitor] 10 mg PO DAILY 09/25/19 [History] Denosumab [Prolia] 60 mg IM ASDIRECTED 03/18/21 [History] Pantoprazole Sodium [Protonix] 0 mg PO DAILY 03/18/21 [History] polyethylene glycoL 3350 [MiraLAX] 17 gm PO DAILY PRN 03/18/21 [History] Past Medical History HEENT History: Reports: Other (See Below) Other HEENT History: wears glasses Cardiovascular History: Reports: High Cholesterol, Hypertension Respiratory History: Reports: Pneumonia, Recurrent Gastrointestinal History: Reports: GERD 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 - Infectious Disease History Infectious Disease History: Reports: Chicken Pox, Measles, Mumps, Novel Coronavirus, Shingles - Past Surgical History HEENT Surgical History: Reports: Adenoidectomy, Tonsillectomy Female Surgical History: Reports: Tubal Ligation Social & Family History - Family History Family Medical History: No Pertinent Family History - Tobacco Use Tobacco Use Status *Q: Never Tobacco User - Caffeine Use Caffeine Use: Reports: Soda Review of Systems - Review of Systems Review Of Systems: See Below Constitutional: Reports: No Symptoms. Denies: Chills, Fever Eyes: Reports: No Symptoms Ears: Reports: No Symptoms Nose: Reports: No Symptoms Mouth/Throat: Reports: No Symptoms Respiratory: Reports: No Symptoms Cardiovascular: Reports: No Symptoms GI/Abdominal: Reports: Decreased Appetite, Nausea. Denies: Abdominal Pain, Diarrhea Genitourinary: Reports: No Symptoms Musculoskeletal: Reports: Back Pain, Leg Pain Skin: Reports: No Symptoms Neurological: Reports: No Symptoms. Denies: Confusion, Dizziness Psychiatric: Reports: No Symptoms ED EXAM, GENERAL - Physical Exam Exam: See Below Exam Limited By: No Limitations General Appearance: Alert, WD/WN, No Apparent Distress Respiratory/Chest: No Respiratory Distress, Lungs Clear, Normal Breath Sounds, No Accessory Muscle Use, Chest Non-Tender Cardiovascular: Normal Peripheral Pulses, Regular Rate, Rhythm, No Edema, No Gallop, No JVD, No Murmur, No Rub GI/Abdominal: Normal Bowel Sounds, Soft, Non-Tender, No Organomegaly, No Distention, No Abnormal Bruit, No Mass (Female) Exam: Other (jurado catheter) Back Exam: Normal Inspection, Other (tenderness to palpation of mid and bilateral low back) Extremities: Other (immobolizer intact to left lower extremity. CMS intact distally. No edema distal to immobilizer.) Neurological: Alert, Oriented, Normal Cognition, Normal Gait, No Motor/Sensory Deficits Psychiatric: Normal Affect, Normal Mood Skin Exam: Warm, Dry, Intact, Normal Color, No Rash Course - Vital Signs Last Recorded V/S: Last Vital Signs Temp 97.4 F 04/07/21 18:43 Pulse 115 H 04/07/21 18:43 Resp 18 04/07/21 18:43 BP 139/71 04/07/21 18:43 Pulse Ox 98 04/07/21 18:43 - Orders/Labs/Meds Labs: Laboratory Tests 04/07/21 04/07/21 Range/Units 19:14 19:14 WBC 9.30 (3.98-10.04) K/mm3 RBC 2.95 L (3.98-5.22) M/mm3 Hgb 9.2 L D (11.2-15.7) gm/dl Hct 28.4 L (34.1-44.9) % MCV 96.3 H (79.4-94.8) fl MCH 31.2 (25.6-32.2) pg MCHC 32.4 (32.2-35.5) g/dl RDW Std Deviation 56.4 H (36.4-46.3) fL Plt Count 238 (182-369) K/mm3 MPV 9.3 L (9.4-12.3) fl Neut % (Auto) 94.3 H (34.0-71.1) % Lymph % (Auto) 1.1 L (19.3-51.7) % [place] % (Auto) 3.4 L (4.7-12.5) % Eos % (Auto) 0 L (0.7-5.8) Baso % (Auto) 0.1 (0.1-1.2) % Neut # (Auto) 8.77 H (1.56-6.13) K/mm3 Lymph # (Auto) 0.10 L (1.18-3.74) K/mm3 [place] # (Auto) 0.32 (0.24-0.36) K/mm3 Eos # (Auto) 0.00 L (0.04-0.36) K/mm3 Baso # (Auto) 0.01 (0.01-0.08) K/mm3 Manual Slide Review Sodium 125 L D (136-145) mEq/L Potassium 4.8 (3.5-5.1) mEq/L Chloride 92 L (98-107) mEq/L Carbon Dioxide 19 L (21-32) mEq/L Anion Gap 18.8 H (5-15) BUN 25 H (7-18) mg/dL Creatinine 1.2 H (0.55-1.02) mg/dL Est Cr Clr Drug Dosing TNP Estimated GFR (MDRD) 44 (>60) mL/min BUN/Creatinine Ratio 20.8 H (14-18) Glucose 104 H (70-99) mg/dL Calcium 10.0 (8.5-10.1) mg/dL Magnesium 1.6 L (1.8-2.4) mg/dL Total Bilirubin 0.8 (0.2-1.0) mg/dL AST 24 (15-37) U/L ALT 34 (14-59) U/L Alkaline Phosphatase 190 H (46-116) U/L Total Protein 6.5 (6.4-8.2) g/dl Albumin 2.6 L (3.4-5.0) g/dl Globulin 3.9 gm/dL Albumin/Globulin Ratio 0.7 L (1-2) Meds: Medications Discontinued Medications Generic Name Dose Route Start Last Admin Trade Name Freq PRN Reason Stop Dose Admin Cyclobenzaprine HCl 5 mg 04/07/21 22:00 04/07/21 22:12 Cyclobenzaprine 10 Mg Tab PO 04/07/21 22:01 5 mg ONETIME ONE Administration Hydromorphone HCl 2 mg 04/07/21 20:39 04/07/21 20:56 Hydromorphone 2 Mg Tab PO 04/07/21 20:40 2 mg ONETIME ONE Administration Hydromorphone HCl 0.25 mg 04/07/21 21:43 04/07/21 21:51 Hydromorphone 0.5 Mg/0.5 Ml Syringe IVPUSH 04/07/21 21:44 0.25 mg ONETIME ONE Administration Sodium Chloride 1,000 mls @ 999 mls/hr 04/07/21 19:03 04/07/21 20:57 Normal Saline IV 04/07/21 20:03 999 mls/hr NOW STA Infusion Ceftriaxone Sodium 1 gm/ 100 mls @ 200 mls/hr 04/07/21 19:27 04/07/21 19:38 Sodium Chloride IV 04/07/21 19:56 200 mls/hr ONETIME ONE Administration Sodium Chloride 1,000 mls @ 999 mls/hr 04/07/21 20:38 04/07/21 20:56 Normal Saline IV 04/07/21 21:38 999 mls/hr NOW STA Administration Ondansetron HCl 4 mg 04/07/21 19:03 04/07/21 19:28 Ondansetron 4 Mg/2 Ml Sdv IVPUSH 04/07/21 19:04 4 mg ONETIME ONE Administration Oxycodone/Acetaminophen 1 tab 04/07/21 21:55 04/07/21 22:13 Acetaminophen/Oxycodone 325-5 Mg Tab PO 04/07/21 21:56 1 tab ONETIME ONE Administration - Re-Assessments/Exams Free Text/Narrative Re-Assessment/Exam: Patient is a 70-year-old female presenting to ER for evaluation of worsening pain to a known tibia fracture in her left lower extremity. She is scheduled to have surgery in [place] 1 week from today. She was recently started on new p ain medications by her primary care provider, Dr. Allie Austin. Review of medication administration record from shelter shows that she is on Percocet 1 tablet every 8 hours routinely. She also has Dilaudid 2 mg every 4 hours as needed and Tylenol every 4 hours as needed. She last received her as needed Dilaudid at 1030 this morning. Last scheduled dose of Percocet was at 1400. Patient was also diagnosed with urinary tract infection yesterday. She does have indwelling Jurado catheter. Review of the [facility] information site shows that urinalysis completed at [facility] showed greater than 50 white blood cells, 3-5 RBCs, and few bacteria. She was prescribed cephalexin, however she has not started this medication yet. Daughter reports patient has had low sodium. She has lost weight since the injury and has not been eating and drinking well. Patient does report that she drinks plain water and is only provided 1 salt packet per day. Patient also reports of intermittent low back pain since the time of her fall. I have ordered blood work, x-ray of the left tibia and fibula, and lumbar x-ray. We will start IV fluids of normal saline at 150 mils per hour and give Zofran 4 mg IV. I will also give Rocephin 1 g IV for urinary tract infection as she has not yet received antibiotics for treatment of this. Pain is well managed at this time. Patient instructed that if pain should return, she will notify us. 04/07/21 20:54 Hematology significant for hemoglobin low at 9.2, sodium 125, chloride 92, CO2 19, anion gap 18.8, BUN 25, creatinine 1.2, magnesium 1.6. X-ray of the left lower extremity shows a fracture which does not appear to have any significant change from previous imaging. X-ray of the lumbar spine shows age-indeterminate compression deformity of T12 vertebral body. She also has degenerative changes. X-ray results discussed with patient and daughter. Patient reports that she did previously have a compression fracture in her spine, however she cannot remember on which vertebrae it was. Plan will be to give her a total of 2 L bolus of normal saline due to her low sodium as well as dehydration. She did report returning pain. Have ordered Dilaudid 2 mg orally as this will provide for more long-term relief as opposed to IV. Once IV fluids are complete, plan will be to discharge her back to the long term facility with a recommendation of the increase use of her as needed Dilaudid. Discussed with patient to request pain meds more frequently. Patient and daughter are in agreement with this plan. 04/07/21 22:01 Patient was due for routine Percocet at 8 PM. He is also due for cyclobenzaprine 5 mg. She does report spasming of the lower extremity. We will administer these medications. Patient has completed IV fluid infusion. She will be discharged to long term facility. They are sending a services delivery driver to pick her up. Departure - Departure Time of Disposition: 21:52 Disposition: DC/Tfer to SNF 03 Condition: Good Clinical Impression: Hyponatremia Urinary tract infection Qualifiers: Urinary tract infection type: catheter-associated UTI Indwelling urinary catheter type: indwelling urethral catheter Encounter type: subsequent encounter Qualified Code(s): T83.511D - Infection and inflammatory reaction due to indwelling urethral catheter, subsequent encounter Closed fracture of left tibia and fibula Qualifiers: Encounter type: subsequent encounter Fracture healing: with delayed healing Qualified Code(s): S82.202G - Unspecified fracture of shaft of left tibia, subsequent encounter for closed fracture with delayed healing - Discharge Information *PRESCRIPTION DRUG MONITORING PROGRAM REVIEWED*: No *COPY OF PRESCRIPTION DRUG MONITORING REPORT IN PATIENT MUNIRA: No Instructions: Tibial and Fibular Fractures, Urinary Tract Infection, Adult, [id number] Referrals: PCP,None [Primary Care Provider] - Forms: ED Department Discharge Additional Instructions: Continue routine Percocet as prescribed. Increase the frequency of as needed pain medications, particularly Dilaudid, in order to maintain control of pain. Your sodium was low in the emergency department. He did receive 2 L of saline through IV. Recommend you increase your dietary intake of salt. Recommend fluids such as Gatorade, Powerade, propel, or Pedialyte as opposed to plain water. Also recommend increased salting of your foods. You received a dose of IV Rocephin for treatment of urinary tract infection in the ER. Resume the cephalexin antibiotic as prescribed starting tomorrow. Follow-up with orthopedics as scheduled next week. To return to ER for any new or worsening symptoms. Sepsis Event Note (ED) - Evaluation Sepsis Screening Result: No Definite Risk
[2021-04-07] MEDS ORDERED: cefTRIAXone 1 GM in Sodium Chloride 0.9% 100 ML IV ONE (19:27)
[2021-04-07] MEDS ORDERED: HYDROmorphone 2 MG Tab PO ONE (20:39)
[2021-04-07] MEDS ORDERED: HYDROmorphone 0.5 MG/0.5 ML Syringe IVPUSH ONE (21:43)
[2021-04-07] MEDS ORDERED: Acetaminophen/oxyCODONE 325-5 MG Tab PO ONE (21:55)
[2021-04-07] MEDS ORDERED: Cyclobenzaprine 10 MG Tab PO ONE (22:00)
--- NOTE | 2021-04-08 09:43 | CR ---
EXAM: XR LUMBAR SPINE 2 OR 3 VIEWS LOCATION: [facility] [employer] [place] DATE/TIME: 04/07/2021 7:41 PM INDICATION: Back pain COMPARISON: None available at time of dictation TECHNIQUE: CR Lumbar Spine. IMPRESSION: Mild dextroconvex curvature and straightening of the lumbar lordosis without significant spondylolisthesis. Age-indeterminate compression deformity of the T12 vertebral body, which could be better evaluated with dedicated cross-sectional imaging if desired. Multilevel degenerative change most prominent L5-S1 where there is mild to moderate disc height loss. Vascular calcifications. SIGNED BY: Edmar Pineda MD 04/07/2021 9:19 PM MARIELLE
--- NOTE | 2021-04-08 09:44 | CR ---
EXAM: XR TIBIA FIBULA 2 VIEWS LEFT LOCATION: [facility] [employer] DATE/TIME: 04/07/2021 7:44 PM INDICATION: Postoperative evaluation. COMPARISON: None. IMPRESSION: No comparison is available. Films taken through a mobilizing splint. There are fractures of the proximal tibia and fibula. SIGNED BY: Samuel Tavera MD 04/07/2021 9:14 PM [facility]
== END 2021-04-07 23:30 ==
LOC: JD.ED 18:39
DX: T83.511A Infection and inflammatory reaction due to indwelling urethral catheter, initial encounter (principal); S82.202G Unspecified fracture of shaft of left tibia, subsequent encounter for closed fracture with delayed healing; N39.0 Urinary tract infection, site not specified; E87.1 Hypo-osmolality and hyponatremia; E78.00 Pure hypercholesterolemia, unspecified; I10 Essential (primary) hypertension; E03.9 Hypothyroidism, unspecified; K21.9 Gastro-esophageal reflux disease without esophagitis; Z88.0 Allergy status to penicillin; Z91.048 Other nonmedicinal substance allergy status; Z79.899 Other long term (current) drug therapy; W19.XXXA Unspecified fall, initial encounter
CPT/HCPCS: 36415; 72100; 72100-26; 73590-26-LT; 73590-LT; 80053; 83735; 85025; 96365; 96375; 99284-25; A9270-GY; J0696; J1170; J2405; J7030

== ENCOUNTER 2022-02-06 06:18 | Emergency (ER) | payer MEDICARE, OTHER ==
[2022-02-06] MEDS ORDERED: Ondansetron 4 MG/2 ML SDV IVPUSH ONE (06:46)
[2022-02-06] MEDS ORDERED: Sodium Chloride 0.9% 10 ML Syringe FLUSH PRN (06:46)
[2022-02-06] MEDS ORDERED: HYDROmorphone 0.5 MG/0.5 ML Syringe IVPUSH ONE ×2 (06:46→08:55)
[2022-02-06] MEDS ORDERED: Propofol 200 MG/20 ML SDV IVPUSH ONE (07:56)
[2022-02-06] MEDS ORDERED: Sodium Chloride 0.9% 1,000 ML IV SCH (08:30)
== END 2022-02-06 10:35 | disposition home or self-care (01) ==
LOC: JD.ED 06:18
DX: S52.572A Other intraarticular fracture of lower end of left radius, initial encounter for closed fracture (principal); S52.532A Colles' fracture of left radius, initial encounter for closed fracture; S52.615A Nondisplaced fracture of left ulna styloid process, initial encounter for closed fracture; I95.1 Orthostatic hypotension; E78.00 Pure hypercholesterolemia, unspecified; I10 Essential (primary) hypertension; K21.9 Gastro-esophageal reflux disease without esophagitis; E03.9 Hypothyroidism, unspecified; Z91.040 Latex allergy status; Z91.048 Other nonmedicinal substance allergy status; Z88.0 Allergy status to penicillin; Z79.899 Other long term (current) drug therapy; W18.30XA Fall on same level, unspecified, initial encounter; Y92.009 Unspecified place in unspecified non-institutional (private) residence as the place of occurrence of the external cause
CPT/HCPCS: 25605; 36415; 71045; 73060; 73090; 73100; 73110; 80053; 83735; 83880; 85025; 85610; 85730; 93005; 93225; 93226; 96361; 96374; 96375; 96376; 99284; J1170; J2405; J2704; J3490; J7030

== ENCOUNTER 2024-01-23 15:29 | Observation (INO) | payer MEDICARE, OTHER ==
[2024-01-23] MEDS: Sodium Chloride 0.9% 10 ML Syringe FLUSH PRN (15:44)
[2024-01-23] MEDS: HYDROmorphone 0.5 MG/0.5 ML Syringe IVPUSH ONE ×2 (15:44→17:27)
[2024-01-23 15:56] LABS: BASOPHILS PERCENT AUTO 0.2 % (0.0-1.0); EOSINOPHILS ABSOLUTE AUTO 0.1 K/mm3 (0.0-0.4); EOSINOPHILS PERCENT AUTO 0.5 % (0.0-6.0); HEMATOCRIT 35.8 % (37.0-47.0); HEMOGLOBIN 11.8 gm/dl (12.0-16.0); IMMATURE GRAN ABSOLUTE AUTO 0.06 K/mm3 (0.00-0.05); IMMATURE GRAN PERCENT AUTO 0.6 % (0.0-0.4); LYMPHOCYTES ABSOLUTE AUTO 0.5 K/mm3 (1.0-4.8); MEAN CORPUSCULAR HEMOGLOBIN 32.2 pg (28.0-32.0); MEAN CORPUSCULAR VOLUME 97.5 fl (83.0-99.0); MEAN PLATELET VOLUME 9.2 fl (9.4-12.3); MONOCYTES ABSOLUTE AUTO 0.8 K/mm3 (0.0-0.8); MONOCYTES PERCENT AUTO 7.8 % (0.0-8.0); NEUTROPHILS ABSOLUTE AUTO 8.3 K/mm3 (1.8-7.7); NEUTROPHILS PERCENT AUTO 85.9 % (41.0-71.0); PLATELET COUNT,PLT 245 K/mm3 (150-400); RED BLOOD CELL COUNT 3.67 M/mm3 (4.10-5.30); WHITE BLOOD CELL COUNT,WBC 9.62 K/mm3 (3.9-11.3)
[2024-01-23 16:26] LABS: A/G RATIO 1.1 (1-2); ALBUMIN 3.7 g/dl (3.4-5.0); BILIRUBIN TOTAL 0.3 mg/dL (0.2-1.0); BUN/CREATININE RATIO 38.6 (14-18); CALCIUM 10.9 mg/dL (8.5-10.1); CREATININE 0.7 mg/dL (0.55-1.02); EST CRCL DRUG DOSING (CG) 62.48 mL/min; PROTEIN TOTAL,TP 7.1 g/dl (6.4-8.2)
[2024-01-23] MEDS: Ondansetron 4 MG Tab.DIS PO ONE (18:33)
[2024-01-23] MEDS ORDERED: Acetaminophen 325 MG Tab PO PRN (21:05)
[2024-01-23] MEDS: Morphine 2 MG/ML SYRINGE IVPUSH PRN (21:30)
[2024-01-23] MEDS: oxyCODONE 5 MG Tab PO PRN (22:26)
[2024-01-24] MEDS: Ondansetron 4 MG Tab.DIS PO PRN (11:21)
== END 2024-01-24 15:26 | disposition home or self-care (01) ==
LOC: JD.ED 15:29 → JD.MS 19:49 → UNDOADMOB 19:49 → JD.ED 20:30
PROVIDERS: ADMIT Emergency Medicine; ATTEND Student in an Organized Health Care Education/Training Program
DX: S42.211A Unspecified displaced fracture of surgical neck of right humerus, initial encounter for closed fracture (principal); S42.251A Displaced fracture of greater tuberosity of right humerus, initial encounter for closed fracture; I10 Essential (primary) hypertension; E78.5 Hyperlipidemia, unspecified; E03.9 Hypothyroidism, unspecified; F41.9 Anxiety disorder, unspecified; F32.A Depression, unspecified; Z79.890 Hormone replacement therapy; Z79.899 Other long term (current) drug therapy; Z88.0 Allergy status to penicillin; Z91.040 Latex allergy status; W18.30XA Fall on same level, unspecified, initial encounter
CPT/HCPCS: 36415; 70450; 71045; 72125; 73060; 80053; 85025; 93005; 96374; 96375; 96376; 99285; G0378; J1171; J2270; J3490; 99222; 99284; A9270-GY